=== PATIENT | male | born 1935 | race Caucasian/White ===

== ENCOUNTER 2016-08-08 06:56 | Emergency (ER) | payer MEDICARE ==
--- NOTE | ~2016-08-08 | EKG ---
PATIENT: YUMIKO ROCHA UNIT #: [id number] Ventricular Rate: 64 BPM Atrial Rate: 64 BPM P-R Interval: 158 ms QRS Duration: 190 ms Q-T Interval: 492 ms QTC Calculation(Bezet): 507 ms Calculated R Roy: -70 degrees Calculated T Roy: 96 degrees Diagnosis Line: Electronic ventricular pacemaker Diagnosis Line: When compared with ECG of 18-JAN-2015 08:47, Diagnosis Line: Vent. rate has decreased BY 16 BPM Diagnosis Line: Confirmed by BARRETT VASQUEZ MD ([id number]) on Diagnosis Line: 08/09/2016 10:51:34 AM INTERPRETING MD: PEDRO STEIN
--- NOTE | ~2016-08-08 | CR72 ---
[facility] A Service of [facility] & [facility] RADIOLOGY TEXT RESULTS PATIENT: YUMIKO ROCHA LOCATION: SED : 31 UNIT #: [id number] AGE: [address]: Zackery hTomason MD SEX: M ORDER DR: [id number] [place] [id number] E MR#: [id number] Acc #: [id number] NAME: YUMIKO ROCHA : 1935 SEX: M STUDY DATE/TIME: 08/08/2016 7:36 UNIT: SED ROOM: STUDY DESCRIPTION: CR Chest Single View Portable Attending Physician: Zackery Thomason M.D. Ordering Physician: Zackery Thomason M.D. Primary Care Physician: Gabby Villela A.P.R.N. MEDICAL IMAGING REPORT This report is preliminary unless electronic signature is present. EXAM Portable chest one-view 08/08/2016 COMPARISON 01/18/2015. CLINICAL HISTORY Short of air for 1 week. FINDINGS Multilead pacemaker in place. There is some mild lower lobe vascular congestion but no consolidation or effusion or pneumothorax. There is borderline cardiomegaly. Dictated by... Indra Cameron M.D. THIS IS AN ELECTRONICALLY VERIFIED REPORT Indra Cameron M.D. at 08/11/2016 2:20 PM TEV/joaquíns TD: 08/08/2016 11:36 JOB #: [id number] MEDICAL IMAGING REPORT Page 1 of 1
[~2016-08-08 06:56] MED LIST: ALBUTEROL0.83 MG/ML NEB; ALBUTEROL17 GM INH; ALBUTEROL2.5 MG/0.5 IH; AZITHROMYCIN250 MG; BAYER ASPIRIN325 M1 PO; BAYER CHEWABLE81 MG PO; BENADRYL25 M1 PO; BENZONATATE PO; COMBIVENT RESPIM4 GM IH; COMBIVENT U/D3 ML INH; CORDARONE200 M1 PO; COUMADIN2.5 MG PO; COUMADIN3 MG PO; ERGOCALCIF50000 UNIT PO; GLIPIZIDE10 MG PO; GLUCOTROL PO; LASIX PO; LASIX20 MG PO; LOPRESSOR PO; NOVOLIN 70100 UNITS/ SUBQ; NOVOLOG100 U/M1 SQ; NOVOLOG7030 INJ; NOVOLOG7030 SUBQ; PEPCID AC20 M2 PO; PREDNISONE PO; ROBITUSSIN-DM118 M1; SIMVASTATIN20 MG PO; SIMVASTATIN40 MG PO; SYMBICORT 80/46.9 G1 INH; SYMBICORT80 INH; SYNTHROID125 PO; TASPRIN325 MG PO; TOPROL XL50 MG PO; VITAMIN D50000 UNIT PO; [UNRECOGNIZED DRUG - OTHER] PO
[2016-08-08] MEDS ORDERED: LEVOFLOXACIN500 MG PO (07:11)
[2016-08-08] MEDS ORDERED: PROMETHAZINE D118 ML PO (07:11)
[2016-08-08 07:36] LABS: BASOPHIL% 0.7 % (0-2.5); EOSINOPHIL# 0.1 X10e3 (0-0.7); EOSINOPHIL% 2.3 % (0.0-7.0); HEMATOCRIT 47.8 % (38.0-50.0); HEMOGLOBIN 16.1 gm/dL (13.0-16.0); LYMPHOCYTE# 1.7 X10e3 (1.0-3.5); LYMPHOCYTE% 26.2 % (17.0-45.0); MEAN CELL VOLUME 89.1 FL (83-96); MEAN CORPUSCULAR HGB CONC 33.6 g/dL (30-36); MEAN PLATELET VOLUME 8.2 FL (6.5-11.5); MONOCYTE# 0.4 X10e3 (0-1.0); MONOCYTE% 6.5 % (3.0-12.0); NEUTROPHIL% 64.3 % (40-75); PLATELET COUNT 122 X10e3 (140-420); RED BLOOD COUNT 5.37 X10e (3.90-5.60); RED CELL DISTRIBUTION WIDTH 15.4 % (11.0-15.5); WHITE BLOOD COUNT 6.3 X10e3 (4.0-10.5)
[2016-08-08 07:38] LABS: DIFF IND NO
[2016-08-08 07:39] LABS: POC - CKMB 3.2 ng/mL (0.0-7.9); POC - TROPONIN <0.05 ng/mL (<=0.05)
[2016-08-08 07:52] LABS: INR 2.2; PROTHROMBIN TIME (PATIENT) 24.9 SECONDS (9.5-12.4)
[2016-08-08 08:00] LABS: PARTIAL THROMBOPLASTIN TIME 35.8 SECONDS (25.6-38.1)
[2016-08-08 08:02] LABS: ALBUMIN SERUM 3.8 g/dL (3.5-5.0); BILIRUBIN, DIRECT 0.1 mg/dL (0.0-0.2); BILIRUBIN,INDIRECT 0.5 mg/dL (0.0-0.9); BILIRUBIN,TOTAL 0.6 mg/dL (0.2-2.0); BUN/CREATININE RATIO 21.33; CALCIUM SERUM 8.7 mg/dL (8.4-10.2); CREATININE SERUM 1.5 mg/dL (0.6-1.4); GLOM FILT RATE Estimated 42.5 mL/min (>60); POTASSIUM 3.7 mmol/L (3.5-5.1); PROTEIN TOTAL SERUM 8.9 g/dL (6.0-8.3)
[2016-08-08 09:08] LABS: POC - CKMB 4.1 ng/mL (0.0-7.9); POC - TROPONIN <0.05 ng/mL (<=0.05)
== END 2016-08-08 11:51 ==
LOC: SED 06:56
PROVIDERS: Emergency Medicine
DX: J90 Pleural effusion, not elsewhere classified (principal); J44.9 Chronic obstructive pulmonary disease, unspecified; N28.9 Disorder of kidney and ureter, unspecified; I25.10 Atherosclerotic heart disease of native coronary artery without angina pectoris; I50.9 Heart failure, unspecified; E11.9 Type 2 diabetes mellitus without complications; Z95.1 Presence of aortocoronary bypass graft; Z95.0 Presence of cardiac pacemaker; Z87.891 Personal history of nicotine dependence; Z88.1 Allergy status to other antibiotic agents; Z79.899 Other long term (current) drug therapy; Z79.82 Long term (current) use of aspirin; Z79.4 Long term (current) use of insulin
CPT/HCPCS: 71010; 80048; 80076; 82553; 83880; 84484; 85025; 85610; 85730; 93005; 94640; 96374; 96375; 99285; J1100; J1940